=== PATIENT | male | born 1970 | race Two or more races ===

== ENCOUNTER 2023-11-29 09:46 | Inpatient (IN) | payer BC ==
[~2023-11-29] VITALS: Ht 170.2 cm; Wt 104.5 kg
[2023-11-29 10:32] LABS: Basophils # (auto) 0 10 ^3/uL (0-0.2); Basophils % (auto) 0.3 % (0.0-2.0); Eosinophils # (auto) 0.2 10 ^3/uL (0-0.8); Hematocrit 45.5 % (41.0-53.0); Hemoglobin 15.9 g/dL (13.5-17.5); Lymphocytes # (auto) 2.2 10 ^3/uL (0.4-5.4); Mean Corpuscular Hemoglobin 31.5 pg (28.0-32.0); Mean Corpuscular Hgb Conc. 34.9 g/dL (32.0-36.0); Mean Corpuscular Volume 90.1 fL (80.0-100.0); Monocytes # (auto) 0.7 10 ^3/uL (0-1.3); Monocytes % (auto) 8.9 % (0.0-12.0); Neutrophils # (auto) 5.2 10 ^3/uL (1.6-8.6); Neutrophils % (auto) 62.8 % (37.0-80.0); Nucleated Red Blood Cells % 0.2 %; Red Blood Cells 5.05 10^6/uL (4.5-5.90); Red Cell Distribution Width 13.3 % (11.8-14.3); White Blood Cell 8.3 10^3/uL (4.4-10.8)
[2023-11-29 10:42] LABS: Alanine Aminotransferase 25 U/L (7-40); Albumin 4.5 g/dL (3.2-4.8); Alkaline Phosphatase 111 U/L (46-116); Anion Gap 6 (5-15); Aspartate Aminotransferase 22 U/L (13-40); BUN/Creatinine Ratio 8.2 (10.0-20.0); Blood Urea Nitrogen 6 mg/dL (9-23); Calcium 9.7 mg/dL (8.5-10.1); Carbon Dioxide 28 mmol/L (20-30); Chloride 103 mmol/L (98-107); Glucose 145 mg/dL (74-106); Potassium 3.9 mmol/L (3.5-5.1); Sodium 137 mmol/L (136-145)
[2023-11-29] MEDS ORDERED: ACETAMINOPHEN 325 MG TAB PO PRN (13:30)
[2023-11-29] MEDS: SODIUM CHLORIDE 0.9% 1,000 ML IV ONE (13:41)
[2023-11-29 13:45] VITALS: PULSE 74; RESP 16; O2SAT 98
[2023-11-29 13:52] LABS: LDL Cholesterol 109 mg/dL (< 100); Triglycerides 99 mg/dL (< 150)
[2023-11-29 13:54] LABS: Cholesterol 183 mg/dL (< 200); HDL Cholesterol 67 mg/dL (40-59)
[2023-11-29 16:08] VITALS: BP 123/71; PULSE 76; RESP 18; TEMP 99.6; O2SAT 99
[2023-11-29 16:56] VITALS: BP 123/71; PULSE 81; RESP 18; TEMP 99.6; O2SAT 99
[2023-11-29 17:53] LABS: Urine Bacteria None Seen /hpf (None Seen); Urine WBC None Seen /hpf (0 - 3)
[2023-11-29 18:08] LABS: Urine Blood Negative /uL (Negative); Urine Clarity Clear (Clear); Urine Color Yellow (Yellow); Urine Protein, UAD TRACE (Negative); Urine Specific Gravity 1.021 (1.001-1.035); Urine Urobilinogen 2 mg/dL (Negative); Urine pH 5.5 (5.0-9.0)
[2023-11-29 20:00] VITALS: PULSE 85; RESP 18; O2SAT 98
[2023-11-29 21:00] VITALS: BP 117/73; PULSE 65; RESP 18; TEMP 98.9; O2SAT 98
[2023-11-29 21:21] LABS: Lipase 40 U/L (12-53)
[2023-11-30] VITALS (7 sets, daily range): BP systolic 115–148; BP diastolic 65–92; PULSE 64–90; RESP 18–20; TEMP 98.1–98.9; O2SAT 95–98
[2023-11-30] MEDS: HYDROcodone-ACET 5/325MG TAB PO PRN (00:47)
[2023-11-30 05:38] LABS: Basophils # (auto) 0 10 ^3/uL (0-0.2); Basophils % (auto) 0.3 % (0.0-2.0); Eosinophils # (auto) 0.2 10 ^3/uL (0-0.8); Eosinophils % (auto) 2.5 % (0.0-7.0); Lymphocytes # (auto) 1.8 10 ^3/uL (0.4-5.4); Lymphocytes % (auto) 23.4 % (10.0-50.0); Mean Corpuscular Hemoglobin 30.9 pg (28.0-32.0); Mean Corpuscular Hgb Conc. 34.1 g/dL (32.0-36.0); Mean Corpuscular Volume 90.5 fL (80.0-100.0); Monocytes # (auto) 0.7 10 ^3/uL (0-1.3); Monocytes % (auto) 9.1 % (0.0-12.0); Neutrophils # (auto) 5.1 10 ^3/uL (1.6-8.6); Neutrophils % (auto) 64.7 % (37.0-80.0); Nucleated Red Blood Cells % 0.1 %; Red Blood Cells 4.53 10^6/uL (4.5-5.90); Red Cell Distribution Width 12.9 % (11.8-14.3); White Blood Cell 7.9 10^3/uL (4.4-10.8)
[2023-11-30 07:50] LABS: INR 1.03 (0.9-1.15); Partial Thromboplastin Time 27.9 SEC (24.5-34.5); Prothrombin Time 10.9 sec (9.3-11.8)
[2023-11-30] MEDS ORDERED: VANCOMYCIN PER PHARMACY 0 MG IV SCH (15:00)
[2023-11-30] MEDS ORDERED: ONDANSETRON HCL 4 MG/2 ML VIAL IV PRN (15:00)
[2023-11-30] MEDS: VANCOMYCIN 1GM/200ML 200 ML IV ONE (15:24)
[2023-11-30] MEDS: VANCOMYCIN 1GM/200ML 200 ML IV SCH (21:31)
[2023-12-01] VITALS (7 sets, daily range): BP systolic 116–127; BP diastolic 75–83; PULSE 67–80; RESP 15–18; TEMP 97.8–98.5; O2SAT 93–97
[2023-12-01] MEDS: SUCCINYLCHOLINE CHLORIDE 20 MG/ML 10ML VIAL IV ONE (07:04)
[2023-12-01] MEDS: LIDOCAINE W/ EPINEPHRINE 1% 20ML VIAL ONE (07:10)
[2023-12-01] MEDS: BUPIVACAINE 0.25% INJ 50ML VIAL ONE (07:10)
[2023-12-01] MEDS ORDERED: fentaNYL CITRATE 100 MCG/2 ML VL ONE (07:14)
[2023-12-01] MEDS ORDERED: ROCURONIUM 10MG/ML 10ML VIAL IV ONE (08:06)
[2023-12-01] MEDS ORDERED: PROPOFOL 10 MG/ML 20 ML IV ONE (08:06)
[2023-12-01] MEDS ORDERED: SUGAMMADEX 200mg/2ml Vial (100MG/ML) IV ONE (08:19)
[2023-12-01] MEDS ORDERED: MEPERIDINE HCL (50 MG/ML) 1 ML VIAL ONE (08:20)
[2023-12-01] MEDS ORDERED: HYDROmorphone HCL 2 MG/ML VL/or syr IV PRN (09:00)
[2023-12-01] MEDS: ONDANSETRON HCL 4 MG/2 ML VIAL IV ONE (09:00)
[2023-12-01] MEDS ORDERED: MEPERIDINE HCL (25 MG/ML) 1ML VIAL IV PRN (09:00)
[2023-12-01 09:06] LABS: PSA Free 0.13 ng/mL; Prostate Specific Antigen 0.7 ng/mL (0.0-4.0)
[2023-12-01] MEDS ORDERED: VANCOMYCIN 1GM/200ML 200 ML IV SCH (21:00)
[2023-12-01] MEDS: VANCOMYCIN 1GM/200ML 200 ML IV SCH (21:06)
[2023-12-02 01:00] VITALS: BP 110/75; PULSE 76; RESP 18; TEMP 98.1; O2SAT 95
[2023-12-02 05:00] VITALS: BP 131/77; PULSE 73; RESP 18; TEMP 97.7; O2SAT 94
[2023-12-02 08:00] VITALS: PULSE 85; RESP 20; O2SAT 93
[2023-12-02 09:00] VITALS: BP 122/86; PULSE 85; RESP 20; TEMP 98.5; O2SAT 93
[2023-12-02 13:00] VITALS: BP 137/86; PULSE 71; RESP 17; TEMP 98; O2SAT 96
[2023-12-02] MEDS: VANCOMYCIN 750mg/150ml 150 ML IV SCH (14:28)
[2023-12-02 21:00] VITALS: BP 135/84; PULSE 80; RESP 18; TEMP 97.8; O2SAT 96
[2023-12-03 01:00] VITALS: BP 19/74; PULSE 70; RESP 17; TEMP 97.3; O2SAT 95
[2023-12-03 05:00] VITALS: BP 132/77; PULSE 73; RESP 18; TEMP 97.9; O2SAT 95
[2023-12-03 07:15] LABS: Basophils # (auto) 0 10 ^3/uL (0-0.2); Basophils % (auto) 0.1 % (0.0-2.0); Eosinophils # (auto) 0.1 10 ^3/uL (0-0.8); Eosinophils % (auto) 1.3 % (0.0-7.0); Hematocrit 41.8 % (41.0-53.0); Hemoglobin 14.4 g/dL (13.5-17.5); Lymphocytes # (auto) 1.4 10 ^3/uL (0.4-5.4); Lymphocytes % (auto) 16.6 % (10.0-50.0); Mean Corpuscular Hgb Conc. 34.4 g/dL (32.0-36.0); Mean Corpuscular Volume 90.2 fL (80.0-100.0); Monocytes # (auto) 0.8 10 ^3/uL (0-1.3); Monocytes % (auto) 9.2 % (0.0-12.0); Neutrophils # (auto) 6.2 10 ^3/uL (1.6-8.6); Neutrophils % (auto) 72.8 % (37.0-80.0); Red Blood Cells 4.63 10^6/uL (4.5-5.90); Red Cell Distribution Width 13.5 % (11.8-14.3); White Blood Cell 8.6 10^3/uL (4.4-10.8)
[2023-12-03 07:22] LABS: Anion Gap 8 (5-15); Carbon Dioxide 25 mmol/L (20-30); Chloride 103 mmol/L (98-107); Potassium 3.6 mmol/L (3.5-5.1); Sodium 136 mmol/L (136-145)
[2023-12-03 07:23] LABS: Calcium 9.4 mg/dL (8.5-10.1)
[2023-12-03 07:28] LABS: BUN/Creatinine Ratio 11.1 (10.0-20.0); Blood Urea Nitrogen 8 mg/dL (9-23); Glucose 149 mg/dL (74-106)
[2023-12-03 08:00] VITALS: PULSE 77; RESP 19; O2SAT 93
[2023-12-03 09:02] VITALS: BP 127/77; PULSE 77; RESP 19; TEMP 98; O2SAT 93
[2023-12-03] MEDS ORDERED: HYDR-4902 PO (13:47)
[2023-12-03] MEDS ORDERED: LEVO500T91 PO (13:47)
[2023-12-03 15:27] VITALS: BP 133/84; PULSE 78; RESP 17; TEMP 98.1; O2SAT 95
== END 2023-12-03 16:10 | disposition home or self-care (01) | DRG 354 ==
LOC: ER 09:46 → OVERFLOW 13:24 → WEST WING 15:45
PROVIDERS: ADMIT Internal Medicine Geriatric Medicine; ATTEND Internal Medicine Pulmonary Disease
PROC: 0WQF0ZZ Repair Abdominal Wall, Open Approach (ICD-10-PCS; principal; 2023-12-01 07:24)
DX: K42.9 Umbilical hernia without obstruction or gangrene (principal); L02.215 Cutaneous abscess of perineum; K40.20 Bilateral inguinal hernia, without obstruction or gangrene, not specified as recurrent; K80.20 Calculus of gallbladder without cholecystitis without obstruction; E66.01 Morbid (severe) obesity due to excess calories; I10 Essential (primary) hypertension; N40.0 Benign prostatic hyperplasia without lower urinary tract symptoms; R73.9 Hyperglycemia, unspecified; R16.0 Hepatomegaly, not elsewhere classified; N49.2 Inflammatory disorders of scrotum; Z71.3 Dietary counseling and surveillance; Z68.36 Body mass index [BMI] 36.0-36.9, adult
CPT/HCPCS: 36415; 71046; 74176; 80048; 80053; 80061; 80202; 81001; 82565; 83036; 83690; 84154; 84443; 85025; 85610; 85730; 86850; 86900; 86901; 87077; 87186; 87205; 96360; G0378; J0330; J2704; J3490